=== PATIENT | female | born 1940 | race Caucasian/White ===

== ENCOUNTER 2020-06-25 18:54 | Emergency (ER) | payer MEDICARE, OTHER, SELFPAY ==
[2020-06-25 19:17] VITALS: BP 123/87; PULSE 108; RESP 16; TEMP 36.5; O2SAT 95; BMI 30.1
[2020-06-25 19:50] LABS: Basophils % 0.3 %; Eosinophils # 0.1 10^3/uL (0.0-0.8); Eosinophils % 0.9 %; Hematocrit 43.8 % (37.0-47.0); Lymphocytes # 1.4 10^3/uL (0.8-4.8); Mean Corpuscular Hemoglobin 28.1 pg (28.0-34.0); Mean Corpuscular Volume 87.8 fL (81-99); Mean Platelet Volume 11.8 fL (7.4-10.4); Monocytes # 0.4 10^3/uL (0.2-0.9); Monocytes % 4.4 %; Neutrophils # 6.05 10^3/uL (1.8-7.7); Neutrophils % 76.1 %; Nucleated Red Blood Cells % 0 %; Platelet Count 190 10^3/cmm (130-400); Red Blood Count 4.99 10^6/uL (4.1-5.3); White Blood Count 7.9 10^3/uL (4.0-10.0)
[2020-06-25 20:14] LABS: Alanine Aminotransferase 25 U/L (0-33); Albumin Level 4.3 g/dL (3.5-5.2); Alkaline Phosphatase 89 IU/L (35-105); Aspartate Amino Transferase 26 U/L (0-32); Blood Urea Nitrogen 17 mg/dL (8-23); Calcium 9.5 mg/dL (8.5-10.5); Carbon Dioxide 27 mmol/L (22-29); Chloride 99 mmol/L (98-107); Globulin 2.7 g/dL (1.3-4.6); Glucose 130 mg/dL (65-115); Osmolality Calculated 289 mOsm/kg (285-295); Sodium 138 mmol/L (136-145); Total Bilirubin 0.5 mg/dL (0.15-1.2)
--- NOTE | 2020-06-25 21:00 | W.ED.NAVMDI ---
HPI - Nausea/Vomiting/Diarrhea General: Chief complaint: Nausea/Vomiting/Diarrhea Stated complaint: HEADACHE/ NAUSEA Time Seen by Provider: 06/25/20 20:59 History of Present Illness: HPI Narrative: 80-year-old female presents with dizziness, nausea, vomiting, and syncopal episodes x2 today. She states that she always passes out when she gets nauseated and is about to vomit. She had been sick with these types of symptoms for a little over a week, but felt better today and worked out in the garage some. She notes that after doing so she began to get sick again. She has a history of atrial fibrillation. She notes now that she has mild chest discomfort, which she described as heartburn . She believes it is due to her vomiting. MD elicited complaint: nausea, vomiting and other Pertinent past history: other Onset (ago): hour(s) Description of vomiting: food contents Associated nausea: Yes Associated abdominal pain: No Location of pain: None Exacerbating factors: none Associated symtoms: Reports chest pain, diaphoresis, dizziness, nausea and other (She says that she had a fever last week she believes, none recently.); Denies anxiety, change in vision, cough, decreased urine output, dysuria, fevers/chills, headache(s), palpitations or short of breath Review of Systems Const: Reports: diaphoresis Eyes: Denies: change in vision or blurry vision ENMT: Denies: sinus pain Card: Reports: chest pain and irregular heart rhythm; Denies: palpitations or edema Resp: Reports: dyspnea; Denies: productive cough, non-productive cough or wheezing GI: Reports: nausea : Denies: dysuria or hematuria Musc: Denies: neck pain or joint warmth Skin/Breast: Denies: rash or erythema Neuro: Reports: dizziness; Denies: headache(s) or vertigo Psych: Denies: anxiety Physical Exam Const: GENERAL APPEARANCE: well developed ORIENTATION/CONSCIOUSNESS: Yes oriented to person, Yes oriented to place and Yes oriented to time HENMT: COMMON NORMALS: normocephalic, external ears normal and Normal external nose present HEAD & SCALP: normocephalic FACE & SINUS: normal facial exam NOSE: Normal external nose present and No nasal discharge present EXTERNAL EAR: Yes external ears normal Eye: COMMON NORMALS: Equal, round and reactive pupils present, EOMs intact bilaterally and conjunctivae normal EYELID: eyelids normal CONJUNCTIVA: Yes conjunctivae normal PUPIL: Yes Equal, round and reactive pupils present Neck/C-Spine: GENERAL: No tracheal deviation Chest: COMMONS NORMALS: normal inspection of the chest CHEST: No tenderness Resp: COMMON NORMALS: clear to auscultation bilaterally EFFORT & INSPECTION: No tachypneic, No respiratory distress, No retractions, No uses accessory muscles and No tracheal deviation AUSCULTATION: clear to auscultation bilaterally, no rhonchi, no wheezes and lung sounds not diminished Cardio: COMMON NORMALS: regular rate and regular rhythm RATE: regular rate RHYTHM: regular rhythm HEART SOUNDS: no murmurs PERIPHERAL PULSES: radial pulses present GI: INSPECTION: No abdominal distension AUSCULTATION: No Hyperactive bowel sounds present and No Hypoactive bowel sounds present PALPATION: No Guarding due to palpation present (GI) and No Rigid due to palpation PERCUSSION: no dullness to percussion and no tympanic to percussion Neuro: SENSORIUM/ORIENTATION: Yes oriented to person, Yes oriented to place and Yes oriented to time Psych: COMMON NORMALS: mental status grossly normal Skin: COMMON NORMALS: no rashes or lesions noted GENERAL SKIN EXAM: no rashes or lesions noted Course Vital Signs: Vital signs: Vital Signs Temperature 97.7 F 06/25/20 19:17 Pulse Rate 82 06/26/20 01:26 Respiratory Rate 15 06/26/20 01:26 Blood Pressure 138/74 06/26/20 01:26 Pulse Oximetry 96 06/26/20 01:26 MDM - Nausea/Vomiting/Diarrhea MDM Narrative: Medical decision making narrative: Chest discomfort is significantly improved following GI cocktail administration. Her chest x-ray is negative. Her EKG shows atrial fibrillation without acute ST change. Her white blood cell count 7.9. Hemoglobin 14. Creatinine is 1.1. Her first troponin was 14. Awaiting her second. Lab Data: Labs: Lab Results 06/25/20 06/25/20 06/25/20 Range/Units 19:38 19:38 19:38 WBC 7.9 (4.0-10.0) 10^3/ uL RBC 4.99 (4.1-5.3) 10^6/u L Hgb 14.0 (11.5-15.3) g/dL Hct 43.8 (37.0-47.0) % MCV 87.8 (81-99) fL MCH 28.1 (28.0-34.0) pg MCHC 32.0 (30.0-36.0) g/dL RDW 12.0 L (12.1-15.1) % Plt Count 190 (130-400) 10^3/c mm MPV 11.8 H (7.4-10.4) fL Neut % (Auto) 76.1 % Lymph % (Auto) 18.0 % [place] % (Auto) 4.4 % Eos % (Auto) 0.9 % Baso % (Auto) 0.3 % Neut # (Auto) 6.05 (1.8-7.7) 10^3/u L Lymph # (Auto) 1.4 (0.8-4.8) 10^3/u L [place] # (Auto) 0.4 (0.2-0.9) 10^3/u L Eos # (Auto) 0.1 (0.0-0.8) 10^3/u L Baso # (Auto) 0.0 (0.0-0.1) 10^3/u L Nucleated RBC % (a uto) 0 % Nucleated RBCs # 0.0 /100WBC Sodium 138 (136-145) mmol/L Potassium 4.0 (3.5-5.1) mmol/L Chloride 99 (98-107) mmol/L Carbon Dioxide 27 (22-29) mmol/L Anion Gap 16.0 (5-19) BUN 17 (8-23) mg/dL Creatinine 1.1 H (0.5-0.9) mg/dL GFR Calculation Not Reportable Glucose 130 H (65-115) mg/dL Calculated Osmolal ity 289 (285-295) mOsm/k g Calcium 9.5 (8.5-10.5) mg/dL Total Bilirubin 0.5 (0.15-1.2) mg/dL AST 26 (0-32) U/L ALT 25 (0-33) U/L Alkaline Phosphata se 89 (35-105) IU/L Troponin T Baselin e 14 H (0-10) ng/L Troponin T 120 Min [place] Troponin T Troponin T Hi Sens 6Hr (0-10) ng/L Troponin T Hi Sens 6Hr Delta (0-12) ng/L Total Protein 7.0 (6.6-8.7) g/dL Albumin 4.3 (3.5-5.2) g/dL Globulin 2.7 (1.3-4.6) g/dL Urine Color (Yellow) Urine Appearance (CLEAR) Urine pH (5-7) Ur Specific Gravit y (1.005-1.030) Urine Protein (Negative) Urine Glucose (UA) (Normal) Urine Ketones (Negative) Urine Blood (Negative) Urine Nitrate (Negative) Urine Bilirubin (Negative) Urine Urobilinogen (Negative) mg/dL Ur Leukocyte Faviola ase (Negative) 06/25/20 06/26/20 06/26/20 Range/Units 23:25 01:23 01:23 WBC (4.0-10.0) 10^3/ uL RBC (4.1-5.3) 10^6/u L Hgb (11.5-15.3) g/dL Hct (37.0-47.0) % MCV (81-99) fL MCH (28.0-34.0) pg MCHC (30.0-36.0) g/dL RDW (12.1-15.1) % Plt Count (130-400) 10^3/c mm MPV (7.4-10.4) fL Neut % (Auto) % Lymph % (Auto) % [place] % (Auto) % Eos % (Auto) % Baso % (Auto) % Neut # (Auto) (1.8-7.7) 10^3/u L Lymph # (Auto) (0.8-4.8) 10^3/u L [place] # (Auto) (0.2-0.9) 10^3/u L Eos # (Auto) (0.0-0.8) 10^3/u L Baso # (Auto) (0.0-0.1) 10^3/u L Nucleated RBC % (a uto) % Nucleated RBCs # /100WBC Sodium (136-145) mmol/L Potassium (3.5-5.1) mmol/L Chloride (98-107) mmol/L Carbon Dioxide (22-29) mmol/L Anion Gap (5-19) BUN (8-23) mg/dL Creatinine (0.5-0.9) mg/dL GFR Calculation Glucose (65-115) mg/dL Calculated Osmolal ity (285-295) mOsm/k g Calcium (8.5-10.5) mg/dL Total Bilirubin (0.15-1.2) mg/dL AST (0-32) U/L ALT (0-33) U/L Alkaline Phosphata se (35-105) IU/L Troponin T Baselin e (0-10) ng/L Troponin T 120 Min [place] Cancelled Delta Troponin T Cancelled Troponin T Hi Sens 6Hr 14.70 H (0-10) ng/L Troponin T Hi Sens 6Hr Delta 0.70 (0-12) ng/L Total Protein (6.6-8.7) g/dL Albumin (3.5-5.2) g/dL Globulin (1.3-4.6) g/dL Urine Color Yellow (Yellow) Urine Appearance Clear (CLEAR) Urine pH 7 (5-7) Ur Specific Gravit y 1.005 (1.005-1.030) Urine Protein Neg (Negative) Urine Glucose (UA) Norm (Normal) Urine Ketones Negative (Negative) Urine Blood Neg (Negative) Urine Nitrate Negative (Negative) Urine Bilirubin Neg (Negative) Urine Urobilinogen Norm (Negative) mg/dL Ur Leukocyte Faviola ase Negative (Negative) Discharge Plan Discharge Patient Disposition: Home Clinical Impression: Syncope Qualifiers: Syncope type: unspecified Qualified Code(s): R55 - Syncope and collapse Vomiting Qualifiers: Vomiting Intractability: unspecified Nausea presence: with nausea Condition: Stable Prescriptions: New Zofran 4 mg tablet 4 mg PO Q6H PRN (Reason: nausea and vomiting) Qty: 10 RF: 0 No Action amlodipine 5 mg Tablet 5 mg PO DAILY RF: 0 Aspirin Low Dose 81 mg Tablet,Delayed Release (Dr/Ec) 81 mg PO DAILY RF: 0 Calcium 600 600 mg calcium (1,500 mg) Tablet 1 mg PO DAILY RF: 0 simvastatin 20 mg Tablet See Rx Instructions .ROUTE .COMPLEX RF: 0 hydrochlorothiazide 25 mg Tablet 12.5 mg PO DAILY RF: 0 metoprolol succinate 25 mg Tablet Extended Release 24 Hr 12.5 mg PO DAILY RF: 0 benazepril 40 mg Tablet 40 mg PO DAILY RF: 0 Colon Herbal Cleanser Capsule 1 cap PO DAILY RF: 0 Multiple Vitamin, Womens Tablet 1 tab PO DAILY RF: 0 omeprazole 20 mg Tablet,Delayed Release (Dr/Ec) 20 mg PO DAILY RF: 0 Discharge Orders: Discharge Order (Routine); Ordered 06/26/20 Ordered By: Emanuel Ortiz Referrals: Lev Deleon DO [Physician] - 1-3 days Discharge Diet: Advance as tolerated and Clear Liquid Discharge Activity: Increase activity as tolerated Patient Instructions: Syncope (ED), Vomiting - Adult Activity Restrictions/Additional Instructions: Return immediately to the emergency department for repeated episodes of vomiting, shortness of breath, repeated syncope or passing out, worsening chest discomfort, other concerning symptoms Coding Level of Care Code ED Software Engineering Analyst for [employer] F[employer] Exam Comprehensive
--- NOTE | 2020-06-25 21:30 | CTR_ITS ---
PROCEDURE INFORMATION: Exam: CT Head Without Contrast Exam date and time: 06/25/2020 10:51 PM Age: 80 years old Clinical indication: Dizziness and syncope and collapse; Additional info: Dizzy TECHNIQUE: Imaging protocol: Computed tomography of the head without contrast. Radiation optimization: All CT scans at this facility use at least one of these dose optimization techniques: automated exposure control; mA and/or kV adjustment per patient size (includes targeted exams where dose is matched to clinical indication); or iterative reconstruction. ADDITIONAL STUDY INFORMATION: Total DLP (mGy-cm): 874.71 COMPARISON: No relevant prior studies available. FINDINGS: There are prominent intracranial arterial calcifications. Mild basal ganglia calcifications are likely physiologic. Evaluation of the brain demonstrates no other areas of abnormal density. There is mild to moderate cerebral cortical atrophy. Ventricles do not appear significantly dilated. There is mildly prominent cisterna magna, a developmental variant. No depressed calvarial fracture is demonstrated. Visualized paranasal sinuses and mastoid air cells demonstrate no significant opacification. CT/CT head wo con* [id number] IMPRESSION: No acute intracranial process is demonstrated. Radiation Dose CTDIVOL = (mGy): DLP = 874.71 (mGy-cm)
--- NOTE | 2020-06-25 21:30 | ECG_ITS ---
[facility] Test Date: 2020-06-25 Pat Name: Rosangela Low Department: Room: Gender: Female Pavilion Cutter: FELIZ : 1940 Requested By: Emanuel Rivas Order Number: [id number] Steffany MD: Dana Major M.D. Measurements Intervals [place] Rate: 113 P: SD: -1 QRS: 0 QRSD: 81 T: 35 QT: 312 QTc: 428 Interpretive Statements ATRIAL FIBRILLATION WITH RAPID VENTRICULAR RESPONSE MODERATE ST DEPRESSION [0.05+ mV ST DEPRESSION] Compared to ECG 12/27/2017 15:47:11 ST (T wave) deviation now present Sinus tachycardia no longer present Electronically Signed On 06-26-2020 11:30:34 BULK PICKER by Dana Major M.D. [id number]
[2020-06-25] MEDS: sodium chloride 0.9% 1,000 ML 999 ML IV (21:46)
[2020-06-25] MEDS: ondansetron 2 mg/ML SDV 2 mL 4 MG IVP (21:46)
[2020-06-25] MEDS: lidocaine 2% viscous 15 ML, aluminum-mag hydrox-simethicon 30 ML, sucralfate oral liq 1 GM PO (21:46)
[2020-06-25 21:50] VITALS: BP 142/60; PULSE 88; RESP 14; O2SAT 96
[2020-06-25 22:43] VITALS: BP 159/109; PULSE 88; RESP 18; O2SAT 98
--- NOTE | 2020-06-25 22:50 | XRR_ITS ---
PROCEDURE INFORMATION: Exam: XR Chest, 1 View Exam date and time: 06/25/2020 11:30 PM Age: 80 years old Clinical indication: Other: Headache, nausea; Chest pain; Type not specified; Additional info: Cp TECHNIQUE: Imaging protocol: XR of the chest Views: 1 view. COMPARISON: 12/27/2017 FINDINGS: No focal pulmonary consolidation is demonstrated on this single frontal image. No significant obscuration of the lateral costophrenic angles is demonstrated. No significant vascular congestion is demonstrated. Visualized cardiac silhouette size appears upper normal. There are calcifications in the thoracic aorta. XR/XR chest 1V [id number] IMPRESSION: No acute pulmonary process is demonstrated.
--- NOTE | 2020-06-25 23:30 | ECG_ITS ---
[facility] Test Date: 2020-06-25 Pat Name: Rosangela Low Department: Room: Gender: Female Advertising Clerk: : 1940 Requested By: Emanuel Rivas Order Number: [id number] Steffany MD: Dana Major M.D. Measurements Intervals [place] Rate: 93 P: AR: -1 QRS: -7 QRSD: 105 T: 28 QT: 347 QTc: 432 Interpretive Statements ATRIAL FIBRILLATION LOW QRS VOLTAGE IN PRECORDIAL LEADS [QRS DEFLECTION < 1.0 mV IN CHEST LEADS] Compared to ECG 06/25/2020 19:22:50 Low QRS voltage now present ST (T wave) deviation no longer present Electronically Signed On 06-26-2020 11:35:38 ASBESTOS HANDLER by Dana Majro M.D. [id number]
[2020-06-25 23:39] LABS: Add Urine Microscopic? NO
--- NOTE | 2020-06-25 23:39 | PC.NURSE ---
REPORT RECEIVED FROM SUZANNE NIEVES AND CARE TRANSFERRED TO SUZANNE QUAN
[2020-06-25 23:40] LABS: Troponin(5th) Baseline 14 ng/L (0-10)
[2020-06-25 23:49] LABS: Bilirubin Urine Neg (Negative); Blood Urine Neg (Negative); Glucose Urine UA Norm (Normal); Ketones Urine Negative (Negative); Leukocyte Esterase Urine Negative (Negative); Nitrate Urine Negative (Negative); Protein Urine Neg (Negative); Specific Gravity, Urine 1.005 (1.005-1.030); Urine Appearance Clear (CLEAR); Urine Color Yellow (Yellow); Urobilinogen Urine Norm (Negative); pH Urine 7 (5-7)
[2020-06-25 23:51] VITALS: BP 131/108; O2SAT 97
[2020-06-26 00:30] VITALS: BP 132/53; PULSE 91; RESP 15; O2SAT 94
[2020-06-26 01:26] VITALS: BP 138/74; PULSE 82; RESP 15; O2SAT 96
[2020-06-26 02:10] VITALS: BP 126/62; PULSE 79; RESP 16; O2SAT 99
== END 2020-06-26 02:20 | disposition home or self-care (01) ==
PROVIDERS: Nurse Practitioner Family; Emergency Provider Emergency Medicine
DX: R55 Syncope and collapse (principal); R11.2 Nausea with vomiting, unspecified; Z79.82 Long term (current) use of aspirin
CPT/HCPCS: 12345; 70450; 71045; 80053; 81003; 84484; 85025; 93005; 96361; 96374; 96375; 99284; J2405; J7030

== ENCOUNTER 2022-09-10 16:26 | Emergency (ER) | payer MEDICARE, OTHER, SELFPAY ==
[2022-09-10 16:27] VITALS: BP 164/86; PULSE 61; RESP 19; TEMP 36.8; O2SAT 97; BMI 29.2
--- NOTE | 2022-09-10 16:34 | ED_ITS ---
HPI - Syncope General: Chief Complaint: Weakness Stated Complaint: WEAKNESS; SYNCOPE; BRADYCARDIA Time Seen by Provider: 09/10/22 16:34 History of Present Illness: Ms. Low is an 82-year-old lady with history of atrial fibrillation and apparent history of syncope presenting to the emergency department due to syncopal episode. She reports that she was at a birthday alliance party when she had sudden onset of weakness after walking up stairs. She sat down and had syncope without fall to the ground or trauma. She was initially clammy and diaphoretic for EMS and bradycardic with episodes of emesis. The patient herself reports fairly sudden onset of symptoms associated with generalized malaise however no recent specific focal infectious sources. No significant associated abdominal tenderness. Intensity symptoms moderate to severe. Course has mildly improved. No other specific changes in health, exacerbating, or alleviating factors identified. Onset (ago): hour(s) Prodromal symptoms: lightheaded Context: during exertion Associated symptoms: Reports lightheadedness, nausea and weakness History: previous syncopal episode Review of Systems General: Reports: 10 or more systems reviewed and unremarkable except in HPI and below Card: Reports: lightheadedness GI: Reports: nausea PFS ED PFSH: Medical History Atrial fibrillation Surgical History No significant past surgical history Physical Exam Const: COMMON NORMALS: patient oriented x3 and alert GENERAL APPEARANCE: cooperative, well developed and ill appearing (mildly) HENMT: COMMON NORMALS: normocephalic and atraumatic HEAD & SCALP: normocephalic and atraumatic THROAT: posterior oropharynx normal Eye: COMMON NORMALS: conjunctivae normal CONJUNCTIVA: Yes conjunctivae normal SCLERA: sclerae normal Neck/C-Spine: COMMON NORMALS: supple GENERAL: Yes trachea midline Resp: COMMON NORMALS: clear to auscultation bilaterally EFFORT & INSPECTION: Yes able to speak in complete sentences AUSCULTATION: clear to auscultation bilaterally Cardio: RATE: bradycardic RHYTHM: abnormal rhythm GI: COMMON NORMALS: Soft to palpation PALPATION: Yes Soft to palpation and No Tenderness to palpation present (GI) PERCUSSION: normal to percussion Extremity: GENERAL: Yes normal exam except as noted and No edema Neuro: COMMON NORMALS: patient oriented x3, CN's II-XII intact bilaterally, moves all extremities, no focal motor deficits and no sensory deficits noted SENSORIUM/ORIENTATION: Yes alert and No Orientation impaired Psych: COMMON NORMALS: mental status grossly normal and Normal thought process present THOUGHT PROCESS: Normal thought process present Course Vital Signs: Vital signs: Vital Signs Temperature 98.2 F 09/10/22 16:36 Pulse Rate 60 09/10/22 20:36 Respiratory Rate 16 09/10/22 20:36 Blood Pressure 141/63 09/10/22 20:36 Pulse Oximetry 97 09/10/22 20:36 Oxygen Delivery Me thod 09/10/22 20:09 MDM - Syncope Medical Decision Making 82-year-old lady presenting due to near syncope associated with exertion. EMS reports patient was diaphoretic, cool, clammy that was mildly proved with fluids but she has vomiting upon arrival. No focal neurologic deficits appreciated. She reports similar episodes in the past. EKG notable for sinus bradycardia with first-degree AV block, normal axis and narrow QRS, no STEMI. Laboratory studies with unremarkable hematologic panel similar to prior. Metabolic panel without acute derangement to explain symptoms, also similar to prior. Negative range 2-hour delta troponin. Viral panel negative. Chest x-ray and head CT compared with prior, no lobar consolidation or pneumothorax, no acute intracranial pathology explain symptoms. Patient feels significantly improved with fluids and antiemetic. Exact etiology of patient's symptoms is unclear, presyncope which may be secondary to orthostasis. The results of ED evaluation were discussed with the patient including disposition options. I recommended admission as the safest option for further evaluation of syncope however patient reports longstanding history of similar with prior evaluations not using clear explanation. She prefers outpatient management. I discussed prescriptions and/or symptomatic cares (if applicable) including appropriate and responsible use, followup plan, and return precautions. The patient verbalized understanding and felt safe for discharge. Medical Records I reviewed the patient's medical records. Lab Data I reviewed the patient's lab results. 09/10/22 16:38 09/10/22 17:52 Radiology Impressions Chest X-Ray 09/10/22 16:43 IMPRESSION: No acute findings. Head CT 09/10/22 16:43 IMPRESSION: No acute intracranial abnormality. Laboratory Results WBC 9.5 10^3/uL (4.0-10.0) 09/10/22 16:38 RBC 4.54 10^6/uL (4.1-5.3) 09/10/22 16:38 Hgb 12.8 g/dL (11.5-15.3) 09/10/22 16:38 Hct 39.8 % (37.0-47.0) 09/10/22 16:38 MCV 87.7 fl (81-99) 09/10/22 16:38 MCH 28.2 pg (28.0-34.0) 09/10/22 16:38 MCHC 32.2 g/dL (30.0-36.0) 09/10/22 16:38 RDW 12.6 % (12.1-15.1) 09/10/22 16:38 Plt Count 257 10^3/cmm (130-400) 09/10/22 16:38 MPV 11.4 fL (7.4-10.4) H 09/10/22 16:38 Neut % (Auto) 59.5 % 09/10/22 16:38 Lymph % (Auto) 29.6 % 09/10/22 16:38 [place] % (Auto) 6.5 % 09/10/22 16:38 Eos % (Auto) 3.3 % 09/10/22 16:38 Baso % (Auto) 0.8 % 09/10/22 16:38 Neut # (Auto) 5.64 10^3/uL (1.8-7.7) 09/10/22 16:38 Lymph # (Auto) 2.8 10^3/uL (0.8-4.8) 09/10/22 16:38 [place] # (Auto) 0.6 10^3/uL (0.2-0.9) 09/10/22 16:38 Eos # (Auto) 0.3 10^3/uL (0.0-0.8) 09/10/22 16:38 Baso # (Auto) 0.1 10^3/uL (0.0-0.1) 09/10/22 16:38 Nucleated RBC % (auto) 0 % 09/10/22 16:38 Nucleated RBCs # 0.0 /100WBC 09/10/22 16:38 Sodium 138 mmol/L (136-145) 09/10/22 17:52 Potassium 4.0 mmol/L (3.5-5.1) 09/10/22 17:52 Chloride 104 mmol/L (98-107) 09/10/22 17:52 Carbon Dioxide 22 mmol/L (22-29) 09/10/22 17:52 Anion Gap 16.0 (5-19) 09/10/22 17:52 BUN 21 mg/dL (8-23) 09/10/22 17:52 Creatinine 1.1 mg/dL (0.5-0.9) H 09/10/22 17:52 GFR Calculation Not Reportable 09/10/22 17:52 Glucose 97 mg/dL (65-115) 09/10/22 17:52 Calculated Osmolality 289 mOsm/kg (285-295) 09/10/22 17:52 Calcium 9.0 mg/dL (8.5-10.5) 09/10/22 17:52 Magnesium 2.0 mg/dL (1.7-2.3) 09/10/22 17:52 Total Bilirubin 0.4 mg/dL (0.15-1.2) 09/10/22 17:52 AST 16 U/L (0-32) 09/10/22 17:52 ALT 12 U/L (0-33) 09/10/22 17:52 Alkaline Phosphatase 80 U/L (35-105) 09/10/22 17:52 Troponin T Baseline 11 ng/L (0-10) H 09/10/22 17:52 Troponin T 120 Minute 10.97 ng/L (0-10) H 09/10/22 19:36 Delta Troponin T -0.03 ABS# (0-10) L 09/10/22 19:36 C-Reactive Protein 3.1 mg/L (0.0-4.9) 09/10/22 17:52 Total Protein 6.6 g/dL (6.6-8.7) 09/10/22 17:52 Albumin 3.8 g/dL (3.5-5.2) 09/10/22 17:52 Globulin 2.8 g/dL (1.3-4.6) 09/10/22 17:52 Procalcitonin 0.10 ng/mL (0-0.5) 09/10/22 17:52 TSH 1.23 uIU/mL (0.27-4.20) 09/10/22 17:52 Coronavirus 229E (PCR) Not detected (NOT DETECT) 09/10/22 17:06 SARS-CoV-2 (PCR) Not detected (NOT DETECT) 09/10/22 17:06 Discharge Plan Discharge Patient Disposition: Home Clinical Impression: Pre-syncope, Nausea & vomiting Condition: Stable Prescriptions: New ondansetron 4 mg tablet,disintegrating 4 mg PO Q8H PRN (Reason: nausea and vomiting) Qty: 15 0RF No Action amlodipine 5 mg Tablet 5 mg PO DAILY Scot Low Dose Aspirin 81 mg Tablet,Delayed Release (Dr/Ec) 81 mg PO DAILY Calcium 600 600 mg calcium (1,500 mg) Tablet 1 mg PO DAILY simvastatin 20 mg Tablet See Rx Instructions .ROUTE .COMPLEX Rx Instructions: 20 mg orally TAKE ON SUNDAY, SUNDAY, AND SUNDAY hydrochlorothiazide 25 mg Tablet 12.5 mg PO DAILY metoprolol succinate 25 mg Tablet Extended Release 24 Hr 12.5 mg PO DAILY benazepril 40 mg Tablet 40 mg PO DAILY Rx Instructions: TAKE IN THE MORNING Colon Herbal Cleanser Capsule 1 cap PO DAILY Multiple Vitamin, Womens Tablet 1 tab PO DAILY omeprazole 20 mg Tablet,Delayed Release (Dr/Ec) 20 mg PO DAILY Zofran 4 mg tablet 4 mg PO Q6H PRN (Reason: nausea and vomiting) Qty: 10 0RF Discharge Orders: Discharge ED (Routine); Ordered 09/10/22 Ordered By: Anuj Avina Discharge Diet: Usual diet Discharge Activity: Increase activity as tolerated Patient Instructions: Acute Nausea and Vomiting (ED), Near Syncope (ED) Activity Restrictions/Additional Instructions: Thank you for visiting the emergency department. You were seen and evaluated for near syncope. The exact cause of your symptoms is unclear though does not appear to need hospitalization at this time given history of similar. Please follow-up with your primary care provider. Return to the emergency department for recurrent symptoms, worsening symptoms, or anything else that you are concerned about and feel needs emergency department evaluation. Coding Level of Care Code ED Biscuitware Brusher for Angel [place]
[2022-09-10 16:36] VITALS: BP 164/86; PULSE 61; RESP 19; TEMP 36.8; O2SAT 97
--- NOTE | 2022-09-10 16:43 | XRR_ITS ---
PROCEDURE INFORMATION: Exam: XR Chest Exam date and time: 09/10/2022 4:47 PM Age: 82 years old Clinical indication: Other: Syncopal episode and weakness; Additional info: Syncope TECHNIQUE: Imaging protocol: Radiologic exam of the chest. Views: 1 view. COMPARISON: CR XR chest 1V [id number] 06/25/2020 11:24 PM FINDINGS: Lungs: Unremarkable. No consolidation. Pleural spaces: Unremarkable. No pleural effusion. No pneumothorax. Heart/Mediastinum: Unremarkable. No cardiomegaly. Bones/joints: Unremarkable. XR/XR chest 1V portable [id number] IMPRESSION: No acute findings.
--- NOTE | 2022-09-10 16:43 | ECG_ITS ---
[facility] Test Date: 2022-09-10 Pat Name: Rosangela Low Department: Room: Gender: Female [employer]: : 1940 Requested By: Anuj Avina Order Number: [id number] Steffany MD: Ortiz Mcrae M.D. Measurements Intervals [place] Rate: 59 P: 64 [place]: 217 QRS: 18 QRSD: 89 T: 30 QT: 407 QTc: 406 Interpretive Statements SINUS BRADYCARDIA WITH FIRST DEGREE AV BLOCK LOW QRS VOLTAGE IN PRECORDIAL LEADS [QRS DEFLECTION < 1.0 mV IN CHEST LEADS] Compared to ECG 06/25/2020 23:50:09 First degree AV block now present Atrial fibrillation no longer present Electronically Signed On 09-12-2022 7:44:18 REMOTE SENSING TECHNICIAN by Ortiz Mcrae M.D. [id number]
--- NOTE | 2022-09-10 16:43 | CTR_ITS ---
PROCEDURE INFORMATION: Exam: CT Head Without Contrast Exam date and time: 09/10/2022 4:57 PM Age: 82 years old Clinical indication: Other: Syncopal episode and weakness; Additional info: Syncope TECHNIQUE: Imaging protocol: Computed tomography of the head without contrast. Radiation optimization: All CT scans at this facility use at least one of these dose optimization techniques: automated exposure control; mA and/or kV adjustment per patient size (includes targeted exams where dose is matched to clinical indication); or iterative reconstruction. COMPARISON: CT head wo con* [id number] 06/25/2020 11:05 PM RADIATION DOSE METRICS: Total DLP (mGy-cm): 1082.88 FINDINGS: Brain: No hemorrhage. No edema. Moderate diffuse cerebral atrophy and mild sequela of chronic small vessel ischemic disease. No mass effect. Cerebral ventricles: No ventriculomegaly. Paranasal sinuses: Visualized sinuses are unremarkable. No fluid levels. Mastoid air cells: Visualized mastoid air cells are well aerated. Bones/joints: Unremarkable. No acute fracture. Soft tissues: Unremarkable. CT/CT head wo con* [id number] IMPRESSION: No acute intracranial abnormality.
[2022-09-10 17:01] LABS: Basophils # 0.1 10^3/uL (0.0-0.1); Basophils % 0.8 %; Eosinophils # 0.3 10^3/uL (0.0-0.8); Eosinophils % 3.3 %; Hematocrit 39.8 % (37.0-47.0); Hemoglobin 12.8 g/dL (11.5-15.3); Lymphocytes # 2.8 10^3/uL (0.8-4.8); Lymphocytes % 29.6 %; Mean Corpuscular HGB Conc 32.2 g/dL (30.0-36.0); Mean Corpuscular Hemoglobin 28.2 pg (28.0-34.0); Mean Corpuscular Volume 87.7 fl (81-99); Mean Platelet Volume 11.4 fL (7.4-10.4); Monocytes # 0.6 10^3/uL (0.2-0.9); Monocytes % 6.5 %; Neutrophils # 5.64 10^3/uL (1.8-7.7); Neutrophils % 59.5 %; Nucleated Red Blood Cells % 0 %; Platelet Count 257 10^3/cmm (130-400); Red Blood Count 4.54 10^6/uL (4.1-5.3); Red Cell Distribution Width 12.6 % (12.1-15.1); White Blood Count 9.5 10^3/uL (4.0-10.0)
[2022-09-10 17:15] VITALS: PULSE 56; RESP 18; O2SAT 96
[2022-09-10] MEDS: sodium chloride 0.9% 500 ML IV (17:19)
[2022-09-10 18:44] VITALS: BP 157/76; PULSE 56; RESP 16; O2SAT 99
[2022-09-10 19:09] LABS: Troponin(5th) Baseline 11 ng/L (0-10)
[2022-09-10 19:17] LABS: Adenovirus Not Detected (NOT DETECT); Chlamydia Pneumoniae Not Detected (NOT DETECT); Coronavirus 229E,HKU1,NL63,OC4 Not Detected (NOT DETECT); Human Metapneumovirus Not Detected (NOT DETECT); Human Rhinovirus/Enterovirus Not Detected (NOT DETECT); Influenza A Not Detected (NOT DETECT); Influenza A H1 Not Detected (NOT DETECT); Influenza A H1-2009 Not Detected (NOT DETECT); Influenza A H3 Not Detected (NOT DETECT); Influenza B Not Detected (NOT DETECT); Mycoplasma Pneumoniae Not Detected (NOT DETECT); Parainfluenza Virus Type 1 Not Detected (NOT DETECT); Parainfluenza Virus Type 2 Not Detected (NOT DETECT); Parainfluenza Virus Type 3 Not Detected (NOT DETECT); Parainfluenza Virus Type 4 Not Detected (NOT DETECT); Respiratory Syncytial Virus A Not Detected (NOT DETECT); Respiratory Syncytial Virus B Not Detected (NOT DETECT); SARS-COV-2 Not Detected (NOT DETECT)
[2022-09-10 19:19] LABS: Thyroid Stimulating Hormone 1.23 uIU/mL (0.27-4.20)
[2022-09-10 19:31] LABS: Alanine Aminotransferase 12 U/L (0-33); Albumin Level 3.8 g/dL (3.5-5.2); Alkaline Phosphatase 80 U/L (35-105); Aspartate Amino Transferase 16 U/L (0-32); Blood Urea Nitrogen 21 mg/dL (8-23); C Reactive Protein 3.1 mg/L (0.0-4.9); Carbon Dioxide 22 mmol/L (22-29); Chloride 104 mmol/L (98-107); Globulin 2.8 g/dL (1.3-4.6); Glucose 97 mg/dL (65-115); Osmolality Calculated 289 mOsm/kg (285-295); Sodium 138 mmol/L (136-145); Total Bilirubin 0.4 mg/dL (0.15-1.2); Total Protein 6.6 g/dL (6.6-8.7)
[2022-09-10 20:09] VITALS: BP 176/76; PULSE 62; RESP 16; O2SAT 99
[2022-09-10 20:11] LABS: Troponin 5 2HR 10.97 ng/L (0-10)
[2022-09-10 20:20] LABS: Troponin 5 2HR Delta -0.03 ABS# (0-10)
[2022-09-10 20:36] VITALS: BP 141/63; PULSE 60; RESP 16; O2SAT 97
== END 2022-09-10 20:37 | disposition home or self-care (01) ==
PROVIDERS: Emergency Provider Emergency Medicine
DX: R55 Syncope and collapse (principal); R11.2 Nausea with vomiting, unspecified; Z20.822 Contact with and (suspected) exposure to COVID-19
CPT/HCPCS: 70450; 71045; 80053; 83735; 84145; 84443; 84484; 85025; 86140; 87635; 93005; 96360; 96361; 99285; J7040

== ENCOUNTER 2023-12-24 08:33 | Emergency (ER) | payer MEDICARE, OTHER, SELFPAY ==
[2023-12-24 08:34] VITALS: BP 150/56; PULSE 47; RESP 18; TEMP 36.4; O2SAT 100; BMI 26.5
--- NOTE | 2023-12-24 08:37 | XRR_ITS ---
PROCEDURE INFORMATION: Exam: XR Chest Exam date and time: 12/24/2023 8:49 AM Age: 83 years old Clinical indication: Cough and dyspnea; Additional info: Dyspnea/cough TECHNIQUE: Imaging protocol: Radiologic exam of the chest. Views: 1 view. COMPARISON: CR XR chest 1V portable [id number] 09/10/2022 4:47 PM FINDINGS: Lungs: The lung parenchyma is clear. Pleural spaces: No pneumothorax. No large pleural effusion. Heart/Mediastinum: The cardiomediastinal silhouette is within normal limits. Bones/joints: Unremarkable. XR/XR chest 1V portable [id number] IMPRESSION: No acute cardiopulmonary abnormality.
--- NOTE | 2023-12-24 08:38 | ECG_ITS ---
[facility] Test Date: 2023-12-24 Pat Name: Rosangela Low Department: Room: Gender: Female [employer]: : 1940 Requested By: Franklin Christianson Order Number: [id number] Steffany MD: Ortiz Mcrae M.D. Measurements Intervals [place] Rate: 46 P: 47 VT: 198 QRS: 10 QRSD: 98 T: 39 QT: 461 QTc: 404 Interpretive Statements SINUS BRADYCARDIA Compared to ECG 09/10/2022 17:34:02 First degree AV block no longer present Electronically Signed On 12-24-2023 10:54:21 CDT by Ortiz Mcrae M.D. [email or web address]/[id number]
--- NOTE | 2023-12-24 08:52 | ED_ITS ---
HPI - Syncope 2 General: Chief Complaint: Syncope Stated Complaint: Syncope , N/V Time Seen by Provider: 12/24/23 08:36 Source: patient Mode of arrival: EMS History of Present Illness: 83-year-old female presents to the emerg ency room after a syncopal episode this morning she was on the phone with her daughter when her she just suddenly dropped the phone. EMS was called she was found unresponsive on the floor they are able to arouse her she had some nausea and vomiting shortly after arriving she is complaining about headache she denies any chest pain. She is on metoprolol succinate she takes a daily. No recent change in dose she is only on 12 and half milligrams a day. She states she had a similar episode a couple of years ago was seen in the emergency room and discharged home. She has reported history of atrial fibrillation. She is not on any anticoagulation just aspirin. In addition to metoprolol she is on benazepril MD complaint: loss of consciousness Associated symptoms: Deny abdominal pain, chest pain, fever(s), headache(s), lightheadedness, nausea, short of breath, vertigo or weakness Treatments prior to arrival: none Review of Systems 2 Const: Denies: fever(s) or chills Card: Denies: chest pain, palpitations, irregular heart rhythm, edema or lightheadedness Resp: Denies: dyspnea GI: Denies: abdominal pain or nausea : Denies: dysuria, urinary frequency or urinary urgency Musc: Denies: neck pain or back pain Skin/Breast: Denies: rash Neuro: Denies: headache(s) or vertigo PFSH ED 2 PFSH: Medical History Atrial fibrillation Surgical History No significant past surgical history Physical Exam 2 Const: GENERAL APPEARANCE: cooperative and comfortable O RIENTATION/CONSCIOUSNESS: Yes awake, Yes oriented to person, Yes oriented to place and Yes oriented to time HENMT: COMMON NORMALS: normocephalic, atraumatic and hearing grossly normal bilaterally HEAD & SCALP: normocephalic and atraumatic Resp: COMMON NORMALS: normal respiratory effort, No retractions, No use of accessory muscles and clear to auscultation bilaterally AUSCULTATION: clear to auscultation bilaterally Cardio: COMMON NORMALS: regular rhythm and No murmurs present (Cardio) R ATE: bradycardic RHYTHM: regular rhythm GI: COMMON NORMALS: Soft to palpation and No hepatosplenomegaly present A USCULTATION: Yes normoactive bowel sounds PALPATION: Yes Soft to palpation, No Tenderness to palpation present (GI), No Guarding due to palpation present (GI) and Yes No hepatosplenomegaly present Extremity: COMMON NORMALS: normal to inspection, capillary refill normal, no clubbing, cyanosis or edema, no calf tenderness and no pedal edema Neuro: SENSORIUM/ORIENTATION: Yes oriented to person, Yes oriented to place and Yes oriented to time Skin: COMMON NORMALS: no rashes or lesions noted GENERAL SKIN EXAM: no rashes or lesions noted Course 2 Vital Signs: Vital signs: Vital Signs Temperature 97.6 F 12/24/23 08:34 Pulse Rate 47 L 12/24/23 10:00 Respiratory Rate 18 12/24/23 08:34 Blood Pressure 133/64 12/24/23 10:00 Pulse Oximetry 100 12/24/23 10:00 Oxygen Delivery Me thod Room Air 12/24/23 10:00 MDM - Syncope Medical Decision Making Patient has recovered and is doing well we noticed while she was here on the monitor heart rate consistently was in the low 40s. She is relatively asymptomatic and her blood pressure was sustained. We did have her ambulate in the halls essentially walking the entire distance of both hallways in the department she was asymptomatic. She states she actually felt better. She relates to me she has been told she has a slow heart rate in the past. Suspect this may have to do with why she had the syncope today. Cardiac enzymes were negative EKG did not show any acute changes we will stop her metoprolol set her up for an echocardiogram and a 48-hour Holter monitor have her follow-up with her primary care provider in the next 3 to 4 days to reevaluate her blood pressure. Continue her other medications. Return if she has another episode or any further chest pain. Will also set her up with a Lexiscan sestamibi stress test. Lab Data 12/24/23 08:40 12/24/23 08:40 Radiology Impressions Chest X-Ray 12/24/23 08:37 IMPRESSION: No acute cardiopulmonary abnormality. Head CT 12/24/23 08:53 IMPRESSION: 1. No acute intracranial hemorrhage or edema. 2. Stable noncontrast head CT since 09/10/2022. Laboratory Results WBC 9.68 10^3/uL (3.29-11.43) 12/24/23 08:40 RBC 4.55 10^6/uL (3.85-5.65) 12/24/23 08:40 Hgb 13.50 g/dL (11.27-16.99) 12/24/23 08:40 Hct 46.6 % (36-47) 12/24/23 08:40 MCV 102.4 fl (85-98) H 12/24/23 08:40 MCH 29.7 pg (27-33) 12/24/23 08:40 MCHC 29.0 g/dL (30-55) L 12/24/23 08:40 RDW 12.5 % (12.1-15.1) 12/24/23 08:40 Plt Count 219 10^3/cmm (157-399) 12/24/23 08:40 MPV 10.1 fL (7.4-10.4) 12/24/23 08:40 Neut % (Auto) 60.5 % 12/24/23 08:40 Lymph % (Auto) 29.2 % 12/24/23 08:40 [place] % (Auto) 5.9 % 12/24/23 08:40 Eos % (Auto) 2.7 % 12/24/23 08:40 Baso % (Auto) 1.4 % 12/24/23 08:40 Neut # (Auto) 5.85 10^3/uL (1.8-7.7) 12/24/23 08:40 Lymph # (Auto) 2.8 10^3/uL (0.8-4.8) 12/24/23 08:40 [place] # (Auto) 0.6 10^3/uL (0.2-0.9) 12/24/23 08:40 Eos # (Auto) 0.3 10^3/uL (0.0-0.8) 12/24/23 08:40 Baso # (Auto) 0.1 10^3/uL (0.0-0.1) 12/24/23 08:40 Nucleated RBC % (auto) 0 % 12/24/23 08:40 Nucleated RBCs # 0.0 /100WBC 12/24/23 08:40 Sodium 137 mmol/L (136-145) 12/24/23 08:40 Potassium 4.0 mmol/L (3.5-5.1) 12/24/23 08:40 Chloride 102 mmol/L (98-107) 12/24/23 08:40 Carbon Dioxide 19 mmol/L (22-29) L 12/24/23 08:40 Anion Gap 20.0 (5-19) H 12/24/23 08:40 BUN 22 mg/dL (8-23) 12/24/23 08:40 Creatinine 1.1 mg/dL (0.5-0.9) H 12/24/23 08:40 GFR Calculation Not Reportable 12/24/23 08:40 Glucose 112 mg/dL (65-115) 12/24/23 08:40 Calculated Osmolality 288 mOsm/kg (285-295) 12/24/23 08:40 Calcium 9.3 mg/dL (8.5-10.5) 12/24/23 08:40 Total Bilirubin 0.6 mg/dL (0.15-1.2) 12/24/23 08:40 AST 20 U/L (0-32) 12/24/23 08:40 ALT 13 U/L (0-33) 12/24/23 08:40 Alkaline Phosphatase 82 U/L (35-105) 12/24/23 08:40 Troponin T Baseline 12 ng/L (0-10) H 12/24/23 08:40 Total Protein 6.8 g/dL (6.6-8.7) 12/24/23 08:40 Albumin 3.8 g/dL (3.5-5.2) 12/24/23 08:40 Globulin 3.0 g/dL (1.3-4.6) 12/24/23 08:40 Urine Color Straw (Yellow) 12/24/23 10:00 Urine Appearance Clear (CLEAR) 12/24/23 10:00 Urine pH 6 (5-7) 12/24/23 10:00 Ur Specific [place] 1.010 (1.005-1.030) 12/24/23 10:00 Urine Protein Neg (Negative) 12/24/23 10:00 Urine Glucose (UA) Norm (Normal) 12/24/23 10:00 Urine Ketones Negative (Negative) 12/24/23 10:00 Urine Blood Neg (Negative) 12/24/23 10:00 Urine Nitrate Negative (Negative) 12/24/23 10:00 Urine Bilirubin Neg (Negative) 12/24/23 10:00 Urine Urobilinogen Norm mg/dL (Negative) 12/24/23 10:00 Ur Leukocyte Esterase Trace (Negative) H 12/24/23 10:00 Urine RBC 0-4 /hpf (0-2) H 12/24/23 10:00 Urine WBC 0-4 /hpf (0-5) H 12/24/23 10:00 Ur Squamous Epith Cells 0-4 /hpf (0-5) H 12/24/23 10:00 Amorphous Sediment Not Reportable 12/24/23 10:00 Urine Bacteria Trace /hpf (NONE) 12/24/23 10:00 All radiology interpretation(s) finalized by discharge Discharge Plan Discharge Patient Disposition: Home Clinical Impression: Atrial fibrillation, Bradycardia, Syncope Condition: Stable Prescriptions: Discontinued metoprolol succinate 25 mg Tablet Extended Release 24 Hr 12.5 mg PO DAILY No Action amlodipine 5 mg Tablet 5 mg PO DAILY aspirin [Scot Low Dose Aspirin] 81 mg Tablet,Delayed Release (Dr/Ec) 81 mg PO DAILY calcium carbonate [Calcium 600] 600 mg calcium (1,500 mg) Tablet 1 mg PO DAILY simvastatin 20 mg Tablet See Rx Instructions .ROUTE .COMPLEX Rx Instructions: 20 mg orally TAKE ON SUNDAY, SUNDAY, AND SUNDAY hydrochlorothiazide 25 mg Tablet 12.5 mg PO DAILY benazepril 40 mg Tablet 40 mg PO QAM Colon Herbal Cleanser Capsule 1 cap PO DAILY omeprazole 20 mg Tablet,Delayed Release (Dr/Ec) 20 mg PO DAILY Women's Multivitamin 18 mg iron-400 mcg-500 mg Tablet 1 tab PO DAILY turmeric 400 mg Capsule 400 mg PO DAILY Discharge Orders: Discharge ED (Routine); Ordered 12/24/23 Ordered By: Franklin Garibay Discharge Diet: Usual diet Discharge Activity: Resume usual activity Patient Instructions: Opioid Safety, Pain Management Activity Restrictions/Additional Instructions: Thank you for choosing [facility] [place] for your healthcare needs today. Please realize this is an emergency room and that we are providing you with a medical screening exam and this may not be complete and all inclusive of all the testing and or work up that you may need to determine your ailment or severity of your illness. It is very important that you follow up as instructed or that you return to the Emergency Department should you have concerns or if your condition changes or worsens in any way. You were seen today for a syncopal episode. Suspect this was caused by a low heart rate. While in the emergency room your heart rate remained in the 40s the entire time. Recommend that you stop the metoprolol. Will set you up for an outpatient 48-hour Holter monitor you should follow-up with your doctor within the next week to reevaluate. If you have recurrent episodes return to the emergency room. Coding Level of Care Code ED Rubber Off for Angel V[place]
[2023-12-24 08:53] LABS: Basophils # 0.1 10^3/uL (0.0-0.1); Basophils % 1.4 %; Eosinophils # 0.3 10^3/uL (0.0-0.8); Eosinophils % 2.7 %; Hematocrit 46.6 % (36-47); Lymphocytes # 2.8 10^3/uL (0.8-4.8); Lymphocytes % 29.2 %; Mean Corpuscular Hemoglobin 29.7 pg (27-33); Mean Corpuscular Volume 102.4 fl (85-98); Mean Platelet Volume 10.1 fL (7.4-10.4); Monocytes # 0.6 10^3/uL (0.2-0.9); Monocytes % 5.9 %; Neutrophils # 5.85 10^3/uL (1.8-7.7); Neutrophils % 60.5 %; Nucleated Red Blood Cells % 0 %; Platelet Count 219 10^3/cmm (157-399); Red Blood Count 4.55 10^6/uL (3.85-5.65); Red Cell Distribution Width 12.5 % (12.1-15.1); White Blood Count 9.68 10^3/uL (3.29-11.43)
--- NOTE | 2023-12-24 08:53 | CT_ITS ---
WS: [id number] CT HEAD NONCONTRAST HISTORY: Syncope with loss of consciousness TECHNIQUE: Contiguous axial imaging performed through the brain in 2.5 mm imaging. Bone and soft tiss ue windows. Sagittal and coronal reformats reviewed. All CT scans at [facility] use at least one of these dose optimization techniques: automated exposure control; mA and/or kV adjustment per pa tient size (includes targeted exams where dose is matched to clinical indication); or iterative recon struction. DLP: 1013.78 mGy.cm COMPARISON: 09/10/2022 No acute intracranial hemorrhage, midline shift or mass effect. Mild atrophy and mild small vessel ischemic disease. 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 Ventricles: Normal size with no hydrocephalus. No inferior displacement of the cerebellar tonsils. Paranasal sinuses: As visualized are clear. Mastoid air cells: Well pneumatized. Calvarium and scalp: Skull is intact with no soft tissue edema or swelling. CT/CT head wo con* [id number] IMPRESSION: 1. No acute intracranial hemorrhage or edema. 2. Stable noncontrast head CT since 09/10/2022.
[2023-12-24 09:17] LABS: Alanine Aminotransferase 13 U/L (0-33); Albumin Level 3.8 g/dL (3.5-5.2); Alkaline Phosphatase 82 U/L (35-105); Blood Urea Nitrogen 22 mg/dL (8-23); Calcium 9.3 mg/dL (8.5-10.5); Carbon Dioxide 19 mmol/L (22-29); Chloride 102 mmol/L (98-107); Creatinine Clr Calc Pharmacy 37.1411; Glucose 112 mg/dL (65-115); Osmolality Calculated 288 mOsm/kg (285-295); Sodium 137 mmol/L (136-145); Total Bilirubin 0.6 mg/dL (0.15-1.2); Total Protein 6.8 g/dL (6.6-8.7)
[2023-12-24 09:18] LABS: Aspartate Amino Transferase 20 U/L (0-32)
[2023-12-24 09:19] LABS: Troponin(5th) Baseline 12 ng/L (0-10)
[2023-12-24 10:00] VITALS: BP 133/64; PULSE 47; O2SAT 100
[2023-12-24 10:31] LABS: Urine Appearance Clear (CLEAR); Urine Color Straw (Yellow)
[2023-12-24 10:32] LABS: Add Urine Microscopic? YES; Bacteria Urine TRACE /hpf; Bilirubin Urine Neg (Negative); Blood Urine Neg (Negative); Glucose Urine UA Norm (Normal); Ketones Urine Negative (Negative); Leukocyte Esterase Urine Trace (Negative); Nitrate Urine Negative (Negative); Protein Urine Neg (Negative); RBC Urine 0-4 /hpf (0-2); Squamous Epithelial Cell Urine 0-4 /hpf (0-5); Urobilinogen Urine Norm (Negative); WBC Urine 0-4 /hpf (0-5); pH Urine 6 (5-7)
[2023-12-24 10:33] LABS: Add Urine Culture? No
--- NOTE | 2023-12-24 10:38 | ECG_ITS ---
[facility] Test Date: 2023-12-24 Pat Name: Rosangela Low Department: Room: Gender: Female Drawer In: : 1940 Requested By: Franklin Christianson Order Number: [id number] Steffany MD: Ortiz Mcrae M.D. Measurements Intervals [place] Rate: 44 P: 37 MI: 179 QRS: 5 QRSD: 85 T: 12 QT: 430 QTc: 371 Interpretive Statements SINUS BRADYCARDIA Compared to ECG 12/24/2023 08:39:57 No significant changes Electronically Signed On 12-24-2023 10:56:49 CDT by Ortiz Mcrae M.D. [email or web address] [id number]
[2023-12-24 11:10] VITALS: BP 164/95; PULSE 54; O2SAT 94
--- NOTE | 2023-12-26 08:48 | DCPLANNER ---
sent echo and allison orders to scheduling
== END 2023-12-24 11:12 | disposition home or self-care (01) ==
PROVIDERS: Emergency Provider Family Medicine; PCP Internal Medicine
DX: I48.91 Unspecified atrial fibrillation (principal); R00.1 Bradycardia, unspecified; R55 Syncope and collapse; Z79.82 Long term (current) use of aspirin
CPT/HCPCS: 70450; 71045; 80053; 81001; 84484; 85025; 93005; 99285